=== PATIENT | female | born 1935 | race African-American/Black ===

== ENCOUNTER 2016-11-08 15:29 | Emergency (ER) | payer OTHER ==
[~2016-11-08] VITALS: Ht 157.5 cm; Wt 60.0 kg
[2016-11-08] MEDS ORDERED: COR3 PO (15:34)
[2016-11-08] MEDS ORDERED: ASPI-1159 PO (15:34)
[2016-11-08] MEDS ORDERED: LOSA25TA3 PO (15:34)
[2016-11-08 16:04] LABS: BASOPHILS % 0.9 % (0.0-2.0); HEMATOCRIT. 32.4 % (36.0-48.0); HEMOGLOBIN. 10.5 g/dL (12.0-16.0); LYMPHOCYTES % 28.5 % (20.0-50.0); MEAN CORPUSCULAR HEMOGLOBIN 28.2 pg (28.0-32.0); MEAN CORPUSCULAR VOLUME 86.8 fL (81.0-99.0); MEAN PLATELET VOLUME 8.6 fl (7.4-10.4); MONOCYTES % 12.3 % (2.0-8.0); NEUTROPHILS % 58.3 % (40.0-76.0); PLATELET 120 x1000/uL (130-400); RED BLOOD CELL COUNT 3.74 mill/uL (4.2-5.4); RED CELL DISTRIBUTION WIDTH 18.2 % (11.6-14.6)
[2016-11-08 16:08] LABS: CHLORIDE 100 mEq/L (98-107)
[2016-11-08 16:12] LABS: INR 1.1; PROTHROMBIN TIME 11.4 sec
[2016-11-08 16:14] LABS: CARBON DIOXIDE 29 mEq/L (21-32)
[2016-11-08] MEDS ORDERED: CLONIDINE 0.2MG TABLET PO ONE (19:45)
[2016-11-08 19:50] VITALS: BP 196/84
== END 2016-11-08 20:00 | disposition short-term general hospital (02) ==
LOC: ER 15:31
DX: T82.838A Hemorrhage due to vascular prosthetic devices, implants and grafts, initial encounter (principal); Y92.538 Other ambulatory health services establishments as the place of occurrence of the external cause; Y82.8 Other medical devices associated with adverse incidents; I13.11 Hypertensive heart and chronic kidney disease without heart failure, with stage 5 chronic kidney disease, or end stage renal disease; N18.6 End stage renal disease; Z99.2 Dependence on renal dialysis; Y84.1 Kidney dialysis as the cause of abnormal reaction of the patient, or of later complication, without mention of misadventure at the time of the procedure; Z79.82 Long term (current) use of aspirin; Z88.2 Allergy status to sulfonamides; Z79.899 Other long term (current) drug therapy
CPT/HCPCS: 36415; 80053; 85025; 85610; 86850; 86900; 99285

== ENCOUNTER 2022-04-07 08:56 | Inpatient (IN) | payer OTHER ==
[~2022-04-07] VITALS: Ht 162.6 cm; Wt 54.7 kg
[2022-04-07] VITALS (10 sets, daily range): BP systolic 96–130; BP diastolic 67–98
[~2022-04-07 08:56] MED LIST: ASPI-1497 PO; COR3 PO; LOSA25TA3 PO
[2022-04-07] MEDS ORDERED: NITROGLYCERIN 0.4MG TABLET SL SL PRN (09:15)
[2022-04-07 09:37] LABS: HEMATOCRIT. 33.1 % (36.0-48.0); HEMOGLOBIN. 10.7 g/dL (12.0-16.0); MEAN CORPUSCULAR HEMOGLOBIN 29.7 pg (28.0-32.0); MEAN CORPUSCULAR VOLUME 91.8 fL (81.0-99.0); PLATELET 146 x1000/uL (130-400); RED BLOOD CELL COUNT 3.61 mill/uL (4.2-5.4)
[2022-04-07 09:43] LABS: BG BASE EXCESS -4.1 mmol/L (-2.0-2.0); BG CARBOXYHEMOGLOBIN 0.9 % (0.5-1.5); BG DEOXYHEMOGLOBIN 0.9 % (0.0-5.0); BG FRACTION INSPIRED OXYGEN 28; BG METHEMOGLOBIN 0.1 % (0.0-1.5); BG OXYGEN SATURATION 99.1 % (92.0-98.5); BG OXYHEMOGLOBIN 98.1 % (94.0-97.0); BG PCO2 28.5 mmHg (35.0-45.0); BG PH 7.442 (7.350-7.450); BG PO2 149.7 mmHg (75.0-100.0); BG SAMPLE SITE RIGHT BRACHIAL; BG TOTAL HEMOGLOBIN 10.9 g/dL (12.0-18.0); BG VENT MODE MASK - BIPAP
[2022-04-07 10:20] LABS: NUCLEATED RED BLOOD CELLS 15 /100 WBC
[2022-04-07 10:21] LABS: PLATELET ESTIMATE NORMAL
[2022-04-07 11:59] LABS: CHLORIDE 108 mEq/L (98-107)
[2022-04-07] MEDS ORDERED: CLONIDINE 0.1MG TABLET PO PRN (16:15)
[2022-04-07] MEDS ORDERED: MAGNESIUM/ALUMINUM HYDROXIDE/SIMETHICONE 30ML UDC PO PRN (16:15)
[2022-04-07] MEDS ORDERED: IPRATROPIUM/ALBUTEROL 0.5-3(2.5)MG/3ML NEB NEB PRN (16:15)
[2022-04-07] MEDS ORDERED: ONDANSETRON HCL 4MG/2ML INJ IV PRN (16:15)
[2022-04-07] MEDS ORDERED: DOCUSATE SODIUM 100MG CAPSULE PO PRN (16:15)
[2022-04-07] MEDS ORDERED: GUAIFENESIN 200MG/10ML SUGAR FREE UDC PO PRN (16:15)
[2022-04-07] MEDS ORDERED: ACETAMINOPHEN 325MG TABLET PO PRN (16:15)
[2022-04-07] MEDS ORDERED: NON FORMULARY PATIENT HOME MED XX SCH (17:00)
[2022-04-07] MEDS ORDERED: ENOXAPARIN 30MG/0.3ML SYR SUBCUT SCH (17:00)
[2022-04-07] MEDS ORDERED: ACETAMINOPHEN 500MG TABLET PO PRN (17:00)
[2022-04-07] MEDS: MIDODRINE HCL 5MG TABLET PO SCH (17:16)
[2022-04-07 18:34] LABS: HEPATITIS B SURFACE ANTIGEN NEGATIVE
[2022-04-07] MEDS: ATORVASTATIN CALCIUM 20MG TABLET PO SCH (21:39)
[2022-04-07] MEDS ORDERED: METOPROLOL TARTRATE 5MG/5ML VIAL IV ONE (23:30)
[2022-04-08] VITALS (17 sets, daily range): BP systolic 98–155; BP diastolic 42–100
[2022-04-08] MEDS ORDERED: AMIODARONE HCL 150 MG in DEXT 5% WATER 100 ML IV NR (01:00)
[2022-04-08 05:07] LABS: BASOPHILS % 0.5 % (0.0-2.0); HEMATOCRIT. 38.4 % (36.0-48.0); HEMOGLOBIN. 11.8 g/dL (12.0-16.0); LYMPHOCYTES % 21.3 % (20.0-50.0); MEAN CORPUSCULAR VOLUME 97.5 fL (81.0-99.0); MEAN PLATELET VOLUME 10.8 fl (7.4-10.4); MONOCYTES % 7.5 % (2.0-8.0); NEUTROPHILS % 70.7 % (40.0-76.0); PLATELET 101 x1000/uL (130-400); RED BLOOD CELL COUNT 3.94 mill/uL (4.2-5.4); RED CELL DISTRIBUTION WIDTH 25.8 % (11.6-14.6)
[2022-04-08 05:13] LABS: CHLORIDE 102 mEq/L (98-107)
[2022-04-08 05:29] LABS: HDL CHOLESTEROL 68 mg/dL (40-59); LDL CHOLESTEROL 34 mg/dL (5-100); PHOSPHORUS 6.3 mg/dL (2.5-4.9); T4 FREE 1.37 ng/dL (0.76-1.46)
[2022-04-08] MEDS: PANTOPRAZOLE 40MG DR TABLET PO SCH (05:44)
[2022-04-08] MEDS: MIDODRINE HCL 5MG TABLET PO SCH ×2 (09:00→17:00)
[2022-04-08] MEDS ORDERED: BISOPROLOL FUMARATE 5 MG TABLET PO SCH (09:00)
[2022-04-08] MEDS: ASPIRIN 81MG EC TABLET PO SCH (10:21)
[2022-04-08] MEDS: ENOXAPARIN 60MG/0.6ML SYR SUBCUT SCH (13:30)
[2022-04-08] MEDS ORDERED: SEVE800T8 PO (21:45)
[2022-04-08] MEDS ORDERED: CINA30TA5 PO (21:45)
[2022-04-08] MEDS ORDERED: APIX5TAB PO (21:45)
[2022-04-08] MEDS ORDERED: BISO5TAB13 PO (21:45)
[2022-04-08] MEDS ORDERED: LOSA25TA26 PO (21:45)
[2022-04-08] MEDS ORDERED: MINO2.5T19 PO (21:45)
[2022-04-08] MEDS ORDERED: MIDO5TAB4 PO (21:45)
[2022-04-08] MEDS: ATORVASTATIN CALCIUM 20MG TABLET PO SCH (22:00)
[2022-04-08] MEDS: METOPROLOL TARTRATE 50MG TABLET PO SCH (22:00)
[2022-04-09] VITALS (16 sets, daily range): BP systolic 75–142; BP diastolic 33–96
[2022-04-09] MEDS: PANTOPRAZOLE 40MG DR TABLET PO SCH (06:40)
[2022-04-09] MEDS: METOPROLOL TARTRATE 50MG TABLET PO SCH ×2 (09:00→21:05)
[2022-04-09] MEDS: ASPIRIN 81MG EC TABLET PO SCH (09:38)
[2022-04-09] MEDS: MIDODRINE HCL 5MG TABLET PO SCH ×2 (09:39→17:45)
[2022-04-09 11:23] LABS: INR 1.7; PROTHROMBIN TIME 17.7 sec (9.6-11.0)
[2022-04-09] MEDS ORDERED: IOHEXOL-350 100 ML BOTTLE ONE (11:24)
[2022-04-09 11:44] LABS: HEMATOCRIT. 35.2 % (36.0-48.0); HEMOGLOBIN. 10.8 g/dL (12.0-16.0); MEAN CORPUSCULAR HEMOGLOBIN 29.4 pg (28.0-32.0); MEAN CORPUSCULAR VOLUME 95.6 fL (81.0-99.0); MEAN PLATELET VOLUME 11.4 fl (7.4-10.4); PLATELET 83 x1000/uL (130-400); RED BLOOD CELL COUNT 3.68 mill/uL (4.2-5.4); RED CELL DISTRIBUTION WIDTH 25.3 % (11.6-14.6)
[2022-04-09] MEDS: ENOXAPARIN 60MG/0.6ML SYR SUBCUT SCH (12:00)
[2022-04-09 12:38] LABS: PHOSPHORUS 6.7 mg/dL (2.5-4.9)
[2022-04-09 12:58] LABS: NUCLEATED RED BLOOD CELLS 35 /100 WBC; PLATELET ESTIMATE DECREASED
[2022-04-09] MEDS ORDERED: ENOXAPARIN 30MG/0.3ML SYR SUBCUT SCH (18:00)
[2022-04-09] MEDS: BLOOD SUGAR DIAGNOSTIC STRIP TEST SCH (21:00)
[2022-04-09] MEDS ORDERED: DEXTROSE 50% WATER 50ML SYRINGE IV PRN (21:00)
[2022-04-09] MEDS ORDERED: MELATONIN 3MG TABLET PO SCH (21:00)
[2022-04-09] MEDS: ATORVASTATIN CALCIUM 20MG TABLET PO SCH (21:05)
[2022-04-10] VITALS: BP 130/108
[2022-04-10] MEDS ORDERED: SODIUM CHLORIDE 0.9% 250 ML IV NR (02:15)
[2022-04-10 03:10] LABS: BG BASE EXCESS -10.3 mmol/L (-2.0-2.0); BG CARBOXYHEMOGLOBIN 0.6 % (0.5-1.5); BG DEOXYHEMOGLOBIN 1.1 % (0.0-5.0); BG FRACTION INSPIRED OXYGEN 32; BG HCO3 ACT 10.4 mmol/L (22.0-26.0); BG METHEMOGLOBIN 0.1 % (0.0-1.5); BG OXYGEN SATURATION 98.9 % (92.0-98.5); BG OXYHEMOGLOBIN 98.2 % (94.0-97.0); BG PCO2 14.1 mmHg (35.0-45.0); BG PH 7.486 (7.350-7.450); BG PO2 144.2 mmHg (75.0-100.0); BG SAMPLE SITE RIGHT RADIAL; BG TOTAL HEMOGLOBIN 11.7 g/dL (12.0-18.0); BG VENT MODE NASAL CANNULA
[2022-04-10 03:14] LABS: BASOPHILS % 0.1 % (0.0-2.0); HEMATOCRIT. 37.6 % (36.0-48.0); HEMOGLOBIN. 11.2 g/dL (12.0-16.0); LYMPHOCYTES % 8.5 % (20.0-50.0); MEAN CORPUSCULAR HEMOGLOBIN 30.2 pg (28.0-32.0); MEAN CORPUSCULAR VOLUME 101.4 fL (81.0-99.0); MEAN PLATELET VOLUME 10.1 fl (7.4-10.4); NEUTROPHILS % 86.4 % (40.0-76.0); PLATELET 67 x1000/uL (130-400); RED BLOOD CELL COUNT 3.71 mill/uL (4.2-5.4); RED CELL DISTRIBUTION WIDTH 26.9 % (11.6-14.6)
[2022-04-10 04:00] VITALS: BP 49/33
[2022-04-10 05:52] VITALS: BP 86/49
[2022-04-10] MEDS: BLOOD SUGAR DIAGNOSTIC STRIP TEST SCH (06:38)
[2022-04-10] MEDS: PANTOPRAZOLE 40MG DR TABLET PO SCH (06:39)
[2022-04-10 06:50] LABS: BASOPHILS % 0.2 % (0.0-2.0); HEMATOCRIT. 35.9 % (36.0-48.0); MEAN CORPUSCULAR HEMOGLOBIN 29.8 pg (28.0-32.0); MEAN PLATELET VOLUME 10.1 fl (7.4-10.4); MONOCYTES % 5.2 % (2.0-8.0); NEUTROPHILS % 81.6 % (40.0-76.0); PLATELET 67 x1000/uL (130-400)
[2022-04-10 07:11] LABS: PHOSPHORUS 5.7 mg/dL (2.5-4.9)
[2022-04-10 08:02] VITALS: BP 142/67
[2022-04-10] MEDS: ASPIRIN 81MG EC TABLET PO SCH (08:03)
== END 2022-04-10 11:45 | DRG 208 ==
LOC: ER 08:56 → SUPCPDRO 14:12 → ENRESERV 16:12 → 7EST 18:18
PROVIDERS: ADMIT Internal Medicine; ATTEND Internal Medicine
PROC: 5A1D70Z Performance of Urinary Filtration, Intermittent, Less than 6 Hours Per Day (ICD-10-PCS; 2022-04-07)
PROC: 5A09357 Assistance with Respiratory Ventilation, Less than 24 Consecutive Hours, Continuous Positive Airway Pressure (ICD-10-PCS; 2022-04-07)
PROC: 5A1935Z Respiratory Ventilation, Less than 24 Consecutive Hours (ICD-10-PCS; 2022-04-07)
PROC: 5A1D70Z Performance of Urinary Filtration, Intermittent, Less than 6 Hours Per Day (ICD-10-PCS; 2022-04-08)
PROC: 02HV33Z Insertion of Infusion Device into Superior Vena Cava, Percutaneous Approach (ICD-10-PCS; principal; 2022-04-09)
PROC: B548ZZA Ultrasonography of Superior Vena Cava, Guidance (ICD-10-PCS; 2022-04-09)
PROC: 5A1D70Z Performance of Urinary Filtration, Intermittent, Less than 6 Hours Per Day (ICD-10-PCS; 2022-04-09)
DX: J96.01 Acute respiratory failure with hypoxia (principal); I50.23 Acute on chronic systolic (congestive) heart failure; I26.99 Other pulmonary embolism without acute cor pulmonale; I21.4 Non-ST elevation (NSTEMI) myocardial infarction; N18.6 End stage renal disease; I13.2 Hypertensive heart and chronic kidney disease with heart failure and with stage 5 chronic kidney disease, or end stage renal disease; E87.4 Mixed disorder of acid-base balance; I42.9 Cardiomyopathy, unspecified; D63.8 Anemia in other chronic diseases classified elsewhere; I48.91 Unspecified atrial fibrillation; I95.1 Orthostatic hypotension; D69.6 Thrombocytopenia, unspecified; E78.5 Hyperlipidemia, unspecified; I45.10 Unspecified right bundle-branch block; I08.3 Combined rheumatic disorders of mitral, aortic and tricuspid valves; I27.20 Pulmonary hypertension, unspecified; Z66 Do not resuscitate; I46.9 Cardiac arrest, cause unspecified; Z79.82 Long term (current) use of aspirin; Z79.899 Other long term (current) drug therapy; Z88.2 Allergy status to sulfonamides; Z88.1 Allergy status to other antibiotic agents; Z95.3 Presence of xenogenic heart valve; Z99.2 Dependence on renal dialysis; Z88.8 Allergy status to other drugs, medicaments and biological substances; Z82.49 Family history of ischemic heart disease and other diseases of the circulatory system
CPT/HCPCS: 36415; 36573; 36600; 71045; 71275; 80048; 80053; 80061; 82375; 82805; 82962; 83735; 83880; 84100; 84439; 84443; 84484; 85025; 85379; 86705; 86709; 86803; 87340; 87426; 90935; 93005; 93306; 93970; 94640; 99291; C1725; C9803; J0282; J1650; J7060; Q9967